=== PATIENT | female | born 1955 ===

== ENCOUNTER 2022-08-21 13:37 | Outpatient (CLI) | payer MEDICARE, OTHER ==
--- NOTE | 2022-08-21 19:41 | CT Report ---
PROCEDURE: SINUS SCREENING WO INDICATIONS: CHRONIC SINUSITIS TECHNIQUE: Noncontrast 3.0 mm axial images acquired from the frontal sinuses to the mid-sella, with coronal and sagittal reformats. For radiation dose reduction, the following was used: automated exposure control , adjustment of mA and/or kV according to patient size. COMPARISON: None. FINDINGS: Image quality: Excellent. Maxillary Sinuses: There is near complete opacification seen of the maxillary sinuses. The maxillary sinuses and wall thickening laterally. Ethmoid Air Cells: The ethmoid air cells demonstrate relatively prominent opacification. Remodeling change can be seen of the ethmoid air cell septations. Sphenoid Sinuses: Mild mucosal thickening is seen involving the sphenoid sinuses. Bony remodeling ch ally can be seen. Frontal Sinuses: There is complete opacification of the frontal sinuses. Bony remodeling change can be seen, with overall thickening of the extrapleural loss of the frontal sinuses. Ostiomeatal Complexes: The osteochondral complexes are nearly completely opacified. The osteochondra l complexes are likely demineralized. Miscellaneous: Visualized intra-orbital contents are normal. No hong bullosa. No nasal septal d eviation. Abnormal soft tissue can be seen on the left side. Focal degenerative change can be seen involving the left temporomandibular joint. IMPRESSION: Significant widespread paranasal sinus disease. Abnormal soft tissues seen involving the left nasal passage, which may related to polyps. Prominent remodeling changes are seen, which are consistent with chronic sinusitis. Reviewed by: Chuy Brooke MD on 08/21/2022 6:39 PM MALVIN Approved by: Chuy Brooke MD on 08/21/2022 6:39 PM [email or web address] Station ID: [id number]
== END 2022-08-21 13:38 | disposition home or self-care (01) ==
LOC: DI 13:37
PROVIDERS: ATTEND Internal Medicine
DX: J32.4 Chronic pansinusitis (principal); R93.0 Abnormal findings on diagnostic imaging of skull and head, not elsewhere classified

== ENCOUNTER 2022-09-12 14:20 | Outpatient (CLI) | payer MEDICARE, OTHER ==
--- NOTE | 2022-09-14 08:35 | Mammography Report ---
BILATERAL DIGITAL SCREENING MAMMOGRAM 3D/2D: 09/12/2022 CLINICAL: Routine screening. Comparison is made to exam dated: 11/27/2020 mammogram - [facility]. There are scattered areas of fibroglandular density in both breasts (category b / 25%-50% glandular t issue). No significant masses, calcifications, or other findings are seen in either breast. There has been no significant interval change. IMPRESSION: NEGATIVE There is no mammographic evidence of malignancy. A 1 year screening mammogram is recommended. Based on the Tyrer Cuzick model (a risk assessment model) the patients lifetime risk is 7.2% and her 10 year risk is 3.6%. According to the ACR, ACS, and NCCN guidelines, an annual breast MRI exam jose g with mammogram is recommended if the patients lifetime risk is 20% or greater. This exam was interpreted at Station ID: [id number]. NOTE: For mammograms, a report in lay terms will be sent to the patient. Approximately 15% of breast malignancies will not be visualized mammographically. In the management of a palpable breast mass, a negative mammogram must not discourage biopsy of a clinically suspicious lesion. Electronically Signed By: Edward Eugene M.D. [email or web address]:09/13/2022 18:07:22 ACR BI-RADS Category 1: Negative 3341F PARENCHYMAL PATTERN: (A) - The breast(s) demonstrate(s) scattered fibroglandular densities. BI-RADS CATEGORY: (1) - 1 Mammogram [id number] 1 year screening LATERALITY: (B)
== END 2022-09-12 14:21 | disposition home or self-care (01) ==
LOC: DI 14:20
PROVIDERS: ATTEND Internal Medicine
DX: Z12.31 Encounter for screening mammogram for malignant neoplasm of breast (principal)

== ENCOUNTER 2022-09-12 14:22 | Outpatient (CLI) | payer MEDICARE, OTHER ==
--- NOTE | 2022-09-12 17:08 | DEXA Report ---
PROCEDURE: Dexa Spine and/or Hip INDICATIONS: POST MENOPAUSAL TECHNIQUE: Dual energy x-ray absorptiometry (DXA) was performed on a [employer] System. Regions measur ed are the AP Spine, femoral neck, and if needed forearm. COMPARISON: None FINDINGS: Lumbar Spine: Bone Mineral Density 1.21 g/cm/cm,T score 0.3. Left Femoral Neck: Bone Mineral Density 0.91 g/cm/cm, T score -0.9. Left Hip: Bone Mineral Density 0.895 g/cm/cm,T score -0.9. (T score greater or equal to -1.0: NORMAL) (T score from -1.1 to -2.4: OSTEOPENIA) (T score less than or equal to -2.5 to: OSTEOPOROSIS) Impression: Overall normal bone mineral density. T-scores in the left femoral neck and hip are at the lower limit of normal. Patients with diagnosis of osteoporosis or osteopenia should have regular bone mineral density assess ment. For those eligible for Medicare, routine testing is allowed once every 2 years. Testing frequ ency can be increased for patients who have rapidly progressing disease or for those who are receivin g medical therapy to restore bone mass. Reviewed by: Naeem Flynn MD on 09/12/2022 5:06 PM PDT Approved by: Naeem Flynn MD on 09/12/2022 5:06 PM PDT Station ID: [id number]
== END 2022-09-12 14:23 | disposition home or self-care (01) ==
LOC: DI 14:22
PROVIDERS: ATTEND Internal Medicine
DX: N95.8 Other specified menopausal and perimenopausal disorders (principal)